=== PATIENT | female | born 1955 | race Caucasian/White ===

== ENCOUNTER → 2018-06-25 | Outpatient (CLI) | payer OTHER | LOC: FIMAGING 07:55 | PROVIDERS: ATTEND Physician Assistant | DX: R11.0 Nausea (principal) | CPT/HCPCS: 78227; A9537 ==

== ENCOUNTER → 2018-06-29 | Outpatient (CLI) | payer MEDICAID, OTHER ==
[~2018-06-29] MED LIST: GADOBUTROL 10 ML VIAL IVP ONE
== END ==
LOC: FIMAGING 13:48
PROVIDERS: ATTEND Physician Assistant
DX: K76.89 Other specified diseases of liver (principal); E16.9 Disorder of pancreatic internal secretion, unspecified
CPT/HCPCS: 74183; A9585

== ENCOUNTER 2018-08-09 10:51 | Day surgery (SDC) | payer OTHER ==
[2018-08-09] MEDS ORDERED: LIDOCAINE 1% 300 MG/30 ML SDV ONE (11:19)
[2018-08-09] MEDS ORDERED: FLUMAZENIL 0.5 MG/5 ML MDV IVP PRN (11:20)
[2018-08-09] MEDS ORDERED: NALOXONE HCL 0.4 MG/ML INJ IVP PRN (11:20)
[2018-08-09] MEDS ORDERED: fentaNYL 100 MCG/2 ML INJ IVP PRN ×2 (11:20→13:54)
[2018-08-09] MEDS ORDERED: MIDAZOLAM 2 MG/2 ML VIAL IVP PRN (11:20)
[2018-08-09] MEDS ORDERED: IOPAMIDOL (ISOVUE-M 300) 15 ML VIAL ONE (11:20)
[2018-08-09] MEDS ORDERED: BUPIVACAINE 0.5% 30 ML SDV ONE (11:20)
[2018-08-09] MEDS ORDERED: NS 1,000 ML IV SCH (11:30)
[2018-08-09] MEDS ORDERED: NS IRR ONE ×2 (11:30→13:00)
[2018-08-09] MEDS ORDERED: DOXYCYCLINE IRR ONE ×2 (11:30→13:00)
[2018-08-09 12:10] LABS: PROTIME(PATIENT) 13.4 SEC (12.0-15.0)
--- NOTE | 2018-08-09 12:45 | PDPROPOC ---
Sedation Plan of Care Sedation Plan of Care: vital signs stable, mental status noted, patient educated of risks, benefits, alternatives, patient can tolerate sedation ASA Classification: ASA 2 Planned drugs: fentanyl, midazolam Mallampati Score: Class 1 Mallampati Reference Image: Patient passed 3-3-2 rule?: Yes
--- NOTE | 2018-08-09 12:46 | PDRADPRE ---
Radiology History & Physical Indication for procedure: other (Symptomatic liver cyst : Plan for single session aspiration and sclerotherapy, patient does not prefer intermediate drainage if possible. Doxycycline sclerosing agent.) Home medications: Acyclovir 200 mg PO DAILY 08/04/18 [Last Taken Unknown] Amlodipine Besylate 10 mg PO DAILY 08/04/18 [Last Taken Unknown] Cymbalta 30 mg PO DAILY 08/04/18 [Last Taken 1 Day Ago ~08/08/18] FOLIC ACID 1 mg PO DAILY 08/04/18 [Last Taken 1 Day Ago ~08/08/18] Gabapentin 200 mg PO HS 08/04/18 [Last Taken 1 Day Ago ~08/08/18] Methotrexate 100 mg PO 08/04/18 [Last Taken 3 Days Ago ~08/06/18] Multivitamin PO DAILY 08/04/18 [Last Taken 1 Day Ago ~08/08/18] Nabumetone 750 mg PO DAILY 08/04/18 [Last Taken 1 Day Ago ~08/08/18] Omeprazole 40 mg PO BID 08/04/18 [Last Taken 1 Day Ago ~08/08/18] traMADol PRN 08/04/18 [Last Taken 1 Day Ago ~08/08/18] Allergies/Adverse Reactions: cefaclor [From Ceclor] Allergy (Severe, Verified 08/04/18 09:33) Rash Sulfa (Sulfonamide Antibiotics) Allergy (Severe, Verified 08/04/18 09:33) Rash erythromycin base Allergy (Intermediate, Verified 08/04/18 09:32) Vomiting Mental status: A&Ox3 Heart exam: regular rate and rhythm Lungs exam: clear to auscultation Mallampati Score: Class 1
[2018-08-09] MEDS ORDERED: ONDANSETRON 4 MG/2 ML VIAL IVP PRN ×2 (13:27→13:51)
[2018-08-09] MEDS ORDERED: ACETAMINOPHEN 325 MG TAB PO PRN ×2 (13:27→13:51)
--- NOTE | 2018-08-09 13:30 | PDRADPN ---
Radiology Procedure Note Date of Procedure: 08/09/18 Radiologist: Jose Choi Anesthesia: IV Sedation Pre-op Diagnosis: Liver cyst (symptomatic) Post-op Diagnosis: Liver cyst (symptomatic) Indication: Liver cyst (symptomatic) Procedure: Single session sclerotherapy Finding(s): 550 mL serous fluid drained from liver cyst. No communication with biliary system or extrahepatic extravasation. 6 Fr drain placed for attempt at single session sclerotherapy with Doxycycline. Inf/Abcess present in the surg proc area at time of surgery?: No
[2018-08-09] MEDS ORDERED: oxyCODONE IR 5 MG TAB PO PRN (13:52)
[2018-08-09] MEDS ORDERED: ONDANSETRON 4 MG/2 ML VIAL ONE (13:54)
[2018-08-09] MEDS ORDERED: PROMETHAZINE HCL 25 MG/ML INJ IVP PRN (14:36)
[2018-08-09 15:51] VITALS: BP 114/77
== END 2018-08-09 16:36 | disposition home or self-care (01) ==
LOC: FIMAGING 10:51
PROVIDERS: ATTEND Physician Assistant
DX: K76.89 Other specified diseases of liver (principal)
CPT/HCPCS: 36470; 47015; 71045; 75989; 76937; 99152; C1729; C1769; J2250; J2310; J2405; J2550; J3010; Q9967